=== PATIENT | female | born 1965 | race Caucasian/White ===

== ENCOUNTER → 2018-06-02 08:56 | Outpatient (CLI) | payer OTHER, SELFPAY ==
--- NOTE | 2018-06-02 09:02 | DI.RAD.S_ITS ---
PROCEDURE: XR CERVICAL SPINE 2V OR 3V INDICATIONS: neck pain TECHNIQUE: 3 view(s) of the cervical spine were acquired. COMPARISON: None. FINDINGS: Bones: No fractures or dislocations to the T1 level. The lateral masses of C1 appear intact on the odontoid view. No suspicious bony lesions. Degenerative changes are seen throughout, with moderate disc space narrowing at the C4-C5 and C5-C6 levels, with mild to moderate disc space narrowing at C6-C7. There is straightening of the normal cervical lordosis. Soft tissues: No prevertebral soft tissue swelling. The visualized lung apices are unremarkable. IMPRESSION: Lower cervical spine degenerative changes are seen, which are most prominent at the C5-C6 level. Straightening of the normal cervical lordosis is seen, which is commonly observed in patients with muscular spasm. Dictated by: Ghanshyam Mendez M.D. on 06/03/2018 at 9:07 Approved by: Ghanshyam Mendez M.D. on 06/03/2018 at 9:09
[2018-06-02 11:18] LABS: Creatine Kinase 86 U/L (30-135)
== END ==
PROVIDERS: Visit Provider Physician Assistant
DX: R29.898 Other symptoms and signs involving the musculoskeletal system (principal)
CPT/HCPCS: 36415; 72040; 82550

== ENCOUNTER → 2018-08-06 08:47 | Outpatient (CLI) | payer OTHER, SELFPAY ==
--- NOTE | 2018-08-06 08:48 | DI.MRI.S_ITS ---
PROCEDURE: MR SHOULDER RT WO CON INDICATIONS: right arm pain TECHNIQUE: Noncontrast oblique coronal T2 fast spin echo with fat saturation, oblique sagittal T1 spin echo and T2 fast spin echo with fat saturation, axial T1 spin echo and T2 fast spin echo with fat saturation through the shoulder. COMPARISON: None. FINDINGS: Image quality: Excellent. Rotator cuff: Tendinosis and low-grade articular and bursal surface partial-thickness tear involving distal supraspinatus near its insertion on the humeral head is seen extending to musculotendinous junction. Infraspinatus tendon is intact. Tendinosis and low-grade intrasubstance partial-thickness tear involving distal subscapularis is seen. No full-thickness rotator cuff tendon rupture. Sagittal images demonstrate mild supraspinatus muscle atrophy. Bones and bursae: No bone marrow contusions or fractures. Mild to moderate acromioclavicular joint osteophyte is seen. Mild to moderate glenohumeral joint osteoarthritis is also noted. Intraosseous cysts in posterior inferior glenoid is noted. The acromion demonstrates conventional anatomy, without an os acromiale. No pathologic subacromial-subdeltoid or subcoracoid bursal fluid is present. Capsule and soft tissues: In the absence of intra-articular contrast, there is signal abnormality and contour irregularity involving inferior posterior labrum at 6 to 8:00 position suggestive of posterior inferior labral tear. Signal abnormality is also seen within superior anterior labrum at one to 2:00 position. The glenohumeral ligaments appear intact. The long head of the biceps tendon demonstrates normal location and morphology. The rotator interval appears normal, without fibrosis. The coracohumeral ligament is normal in thickness. IMPRESSION: 1. Mild to moderate acromioclavicular joint and glenohumeral joint osteoarthritis. No fracture or dislocation. Trace amount of joint fluid. 2. Suggestion of superior anterior labral tear at one to 2:00 position and inferior posterior labral tear at 6 to 8:00 position. 3. Tendinosis and low-grade articular and bursal surface partial-thickness tear involving distal supraspinatus. Tendinosis and low-grade intrasubstance partial-thickness tear involving distal subscapularis. Mild supraspinatus muscle atrophy. Dictated by: Jerrod Phillips M.D. on 08/06/2018 at 10:08 Approved by: Jerrod Phillips M.D. on 08/06/2018 at 10:31
--- NOTE | 2018-08-06 08:48 | DI.MRI.S_ITS ---
PROCEDURE: MR THORACIC SPINE WO CON INDICATIONS: Right arm pain and weakness. TECHNIQUE: Noncontrast sagittal T1 spine echo and T2 fast spin echo, sagittal STIR, axial T1 and T2 fast spin echo through the thoracic spine. COMPARISON: None. FINDINGS: Image quality: Excellent. Alignment and Curvature: There is normal bony alignment. Bone Marrow: Marrow is of normal overall signal. No acute vertebral body compression fractures. Degenerative disc disease is mild along the thoracic spine until the T5-6 through T7-T8 levels are reached where mild to moderate posterior disc bulging is present but without significant spinal stenosis. Moderate degenerative disc disease is present at T11-T12 with a posterior disc bulge contiguous with the disc annulus, slightly greater on the right than the left and producing mild anterior spinal stenosis on the right. Spinal Cord: Visualized spinal cord is normal in size and signal. Paraspinous Soft Tissues: No paravertebral masses. Miscellaneous: On axial images, central canal and foramina appear widely patent at all scanned levels. IMPRESSION: Mild/moderate degenerative disc disease along the thoracic spine as discussed, most prominent at T11-T12 on the right upper disc herniation or evidence of prior trauma. A source of right arm pain and weakness is not identified by this study. Cervical MR may be warranted to accurately assess the cervical innervation to the upper extremities. Dictated by: Red Monzon M.D. on 08/06/2018 at 11:00 Approved by: Red Monzon M.D. on 08/06/2018 at 11:08
--- NOTE | 2018-08-06 08:48 | DI.MRI.S_ITS ---
PROCEDURE: MR CERVICAL SPINE WO CON INDICATIONS: right arm pain TECHNIQUE: Noncontrast sagittal T1 spin echo and T2 fast spin echo, sagittal STIR, foraminal oblique sagittal T2 fast spin echo, and axial gradient echo or T2 fast spin echo through the cervical spine. COMPARISON: None. FINDINGS: Image quality: Excellent. Alignment and Curvature: There is loss of normal cervical lordosis. Bone Marrow: Marrow demonstrates normal overall signal. There is mild reactive signal within the endplates adjacent to the C3-C4, C4-C5, C5-C6, and C6-C7 intervertebral discs. Spinal Cord: Visualized spinal cord has normal size and signal. No cerebellar tonsillar herniation. Paraspinous Soft Tissues: No paravertebral masses. Prevertebral soft tissues are normal in thickness. C2-C3: Bilateral facet hypertrophy. Mild left foraminal stenosis. No right foraminal stenosis. No canal stenosis. C3-C4: Congenital canal stenosis. Disc desiccation. Mild facet hypertrophy bilaterally. Mild canal stenosis. Mild bilateral foraminal stenosis. C4-C5: Congenital canal stenosis. Mild disc desiccation and diffuse disc bulge. Mild bilateral facet and uncovertebral hypertrophy. Mild canal stenosis. Mild right and moderate left foraminal stenosis. C5-C6: Congenital canal stenosis. Mild disc height loss and desiccation. Mild diffuse disc bulge. Bilateral facet and uncovertebral hypertrophy. Moderate canal stenosis. Moderate right and mild left foraminal stenosis. C6-C7: Congenital canal stenosis. Mild disc height loss and desiccation. Mild diffuse disc bulge. Mild bilateral facet and uncovertebral hypertrophy. Moderate canal stenosis. Mild bilateral foraminal stenosis. C7-T1: Disc desiccation. Bilateral facet and uncovertebral hypertrophy. No significant canal, nor foraminal stenosis. IMPRESSION: 1. Diffuse congenital canal stenosis, with superimposed disc and facet disease, as well as uncovertebral hypertrophy. 2. Multilevel canal stenoses, worst at C5-C6 and C6-C7, where there are moderate canal stenoses present. 3. Multilevel foraminal stenoses, worse at C4-C5 on the left, and at C5-C6 on the right, where there are moderate foraminal stenoses present. Dictated by: Josiane Loya M.D. on 08/06/2018 at 11:37 Approved by: Josiane Loya M.D. on 08/06/2018 at 11:50
== END ==
PROVIDERS: PCP Student in an Organized Health Care Education/Training Program; Visit Provider Student in an Organized Health Care Education/Training Program
DX: M79.601 Pain in right arm (principal); M19.011 Primary osteoarthritis, right shoulder; M50.221 Other cervical disc displacement at C4-C5 level; M48.02 Spinal stenosis, cervical region; M51.34 Other intervertebral disc degeneration, thoracic region; R29.898 Other symptoms and signs involving the musculoskeletal system
CPT/HCPCS: 72141; 72146; 73221

== ENCOUNTER 2019-03-07 00:24 | Emergency (ER) | payer OTHER, SELFPAY ==
[2019-03-07 00:33] VITALS: BP 148/100; PULSE 85; RESP 16; TEMP 37.2; O2SAT 95; BMI 42.5
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
[2019-03-07] MEDS: SODIUM CHLORIDE 0.9% 1,000 ML 1000 ML IV (00:54)
[2019-03-07 01:07] LABS: Add Manual Diff / Slide Review NO; Basophils Absolute Auto 100 /uL (0-100); Basophils Percent Auto 0.6 % (0-2); Eosinophils Absolute Auto 300 /uL (0-450); Eosinophils Percent Auto 2.9 % (2-4); Hemoglobin 16.4 g/dL (12.0-16.0); Lymphocytes Absolute Auto 3100 /uL (1100-4500); Lymphocytes Percent Auto 29.3 % (25-40); Mean Corpuscular HGB Conc 34.8 % (30-36); Mean Corpuscular Hemoglobin 31.6 PG (26-34); Mean Corpuscular Volume 90.8 fL (80-100); Monocytes Absolute Auto 800 /uL (0-900); Monocytes Percent Auto 7.5 % (3-14); Neutrophils Absolute Auto 6300 /uL (1500-7000); Neutrophils Percent Auto 59.7 % (50-75); Platelet Count 205 X10^3/uL (150-400); Red Blood Cell Count 5.18 X10^6/uL (4.0-5.2); Red Cell Distribution Width 13.4 % (11.6-14.8); White Blood Cell Count 10.6 X10^3/uL (4.5-11.0)
[2019-03-07 01:14] LABS: Alanine Aminotransferase 57 IU/L (9-52); Albumin 4.8 g/dL (3.5-5.0); Albumin Globulin Ratio 1.6 (1.0-2.8); Alkaline Phosphatase 82 U/L (38-126); Aspartate Aminotransferase 32 IU/L (14-36); Bilirubin Total 0.4 mg/dL (0.2-1.3); Blood Urea Nitrogen 17 mg/dL (7-17); Calcium 10.9 mg/dL (8.4-10.2); Carbon Dioxide 26 mmol/L (22-32); Chloride 108 mmol/L (98-107); Estimated Glomerular Filt Rate > 60.0 mL/min (>60); Glucose 103 mg/dL (70-100); HEMOLYSIS 47 (0-50); Lipase 150 U/L (23-300); Potassium 4.1 mmol/L (3.4-5.1); Sodium 144 mmol/L (137-145); Total Protein 7.8 g/dL (6.3-8.2)
[2019-03-07 02:42] VITALS: BP 117/57; PULSE 77; O2SAT 95
== END 2019-03-07 02:50 | disposition home or self-care (01) ==
PROVIDERS: Emergency Provider Emergency Medicine; PCP Student in an Organized Health Care Education/Training Program
DX: R10.9 Unspecified abdominal pain (principal); V03.00XA Pedestrian on foot injured in collision with car, pick-up truck or van in nontraffic accident, initial encounter; Y92.481 Parking lot as the place of occurrence of the external cause
CPT/HCPCS: 36591; 74177; 80053; 83690; 85025; 96360; 96361; 99283; 99284; Q9967

== ENCOUNTER → 2019-04-05 07:54 | Outpatient (CLI) | payer OTHER, SELFPAY ==
--- NOTE | 2019-04-05 07:56 | DI.US.S_ITS ---
PROCEDURE: US ABDOMEN LIMITED INDICATIONS: LIVER MASS ON CT TECHNIQUE: Real-time focused scanning was performed of the abdomen, with image documentation. COMPARISON: [facility], CT, CT ABDOMEN PELVIS W CON, 03/07/2019, 1:32. FINDINGS: Within the medial posterior liver, there is a mass seen that measures 2.6 x 1.8 x 2.5 cm. This mass is mildly echogenic compared to the surrounding normal liver. No abnormal vascularity can be seen. IMPRESSION: There is a mildly hyperechoic liver mass seen, corresponding to the CT abnormality. This is felt most likely to be related to a benign hemangioma. However, in a patient of this age, differential diagnosis includes a neoplastic mass. At clinical discretion, please consider a dedicated liver protocol MRI or CT for further evaluation. Dictated by: Ghanshyam Mendez M.D. on 04/05/2019 at 9:30 Approved by: Ghanshyam Mendez M.D. on 04/05/2019 at 9:33
== END ==
PROVIDERS: PCP Student in an Organized Health Care Education/Training Program; Visit Provider Student in an Organized Health Care Education/Training Program
DX: R16.0 Hepatomegaly, not elsewhere classified (principal)
CPT/HCPCS: 76705

== ENCOUNTER → 2019-04-13 14:43 | Outpatient (CLI) | payer OTHER, SELFPAY ==
[2019-04-13 18:56] LABS: Bilirubin Urine UA NEGATIVE (NEGATIVE); Color Urine UA YELLOW; Glucose Urine UA NEGATIVE (Negative); Ketones Urine UA TRACE (NEGATIVE); Leukocyte Esterase Urine UA 1+ (NEGATIVE); Nitrite Urine UA POSITIVE (Negative); Occult Blood Urine UA 3+ (Negative); Protein Urine UA 2+ (Negative); Specific Gravity Urine UA 1.025 (1.000-1.035); Urobilinogen Urine UA 0.2 E.U./dL (0.2); pH Urine UA 5.5 (4.5-8.0)
[2019-04-13 19:12] LABS: Appearance Urine UA SL CLOUDY
[2019-04-13 19:30] LABS: Bacteria Urine Moderate (10-30); Culture Indicated Urine Specimen Cultured; RBC Urine 30-100/HPF (0-5/HPF); Renal Epithelial Cells Urine 0-1/HPF (0-1/HPF); WBC Urine >100/HPF (0-5/HPF)
== END ==
PROVIDERS: PCP Student in an Organized Health Care Education/Training Program; Visit Provider Nurse Practitioner
DX: R10.9 Unspecified abdominal pain (principal); R31.9 Hematuria, unspecified
CPT/HCPCS: 81001; 87077; 87086; 87186

== ENCOUNTER → 2019-05-03 09:51 | Outpatient (CLI) | payer OTHER, SELFPAY ==
[2019-05-03 13:16] LABS: Appearance Urine UA CLOUDY; Bilirubin Urine UA NEGATIVE (NEGATIVE); Color Urine UA YELLOW; Glucose Urine UA NEGATIVE (Negative); Ketones Urine UA NEGATIVE (NEGATIVE); Leukocyte Esterase Urine UA 2+ (NEGATIVE); Nitrite Urine UA NEGATIVE (Negative); Occult Blood Urine UA 3+ (Negative); Protein Urine UA NEGATIVE (Negative); Urobilinogen Urine UA 0.2 E.U./dL (0.2)
[2019-05-03 13:25] LABS: Amorphous Sediment Urine 1+; Bacteria Urine Few (2-10); Mucus Urine 1+ (Negative); RBC Urine 10-30/HPF (0-5/HPF); Squamous Epithelial Cell Urine 0-1 /HPF (0-5/HPF); WBC Urine 30-100/HPF (0-5/HPF)
[2019-05-03 13:26] LABS: Culture Indicated Urine Specimen Cultured
== END ==
PROVIDERS: PCP Student in an Organized Health Care Education/Training Program; Visit Provider Nurse Practitioner
DX: R31.9 Hematuria, unspecified (principal); R82.998 Other abnormal findings in urine; Z87.440 Personal history of urinary (tract) infections
CPT/HCPCS: 81001; 87077; 87086; 87186

== ENCOUNTER 2019-06-14 09:45 | Outpatient (RCR) | payer OTHER, SELFPAY ==
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
--- NOTE | 2019-06-22 15:55 | PT.OPDS ---
Current Diagnoses Dorsalgia, unspecified (06/14/19) Visit Care Team Role Provider Type Aaron Harper MD Attending Provider Physician Primary Care Provider Specialty: Internal Medicine Address: [address] [place] [address], [facility] [address], [place], [facility] Email: [email or web address] Visit Number Visit Number 12 Discharge Summary PT-OP-C Subjective Start: 04/14/19 10:40 Freq: Status: Active Protocol: Document 06/22/19 15:53 HH (Rec: 06/22/19 15:55 HH [email or web address]) OP-PT Subjective Patient Comments Patient Comments Pt called in last Thursday and stated request to d/c from PT. PT-OP-T Assessment and Plan Start: 04/14/19 10:40 Freq: Status: Active Protocol: Document 06/22/19 15:53 HH (Rec: 06/22/19 15:54 HH [email or web address]) Physical Therapy Plan Discharge Physical Therapy Discharge Reasons Plateau in Progress Discharge Comments Pt called in last Thursday and stated request to d/c from PT. Pt reports she is pleased with her progress and able to return to workout activities.
== END 2019-07-06 16:43 | disposition home or self-care (01) ==
LOC: PHYS 09:45
PROVIDERS: PCP Student in an Organized Health Care Education/Training Program; Visit Provider Student in an Organized Health Care Education/Training Program
DX: M54.9 Dorsalgia, unspecified (principal)
CPT/HCPCS: 97014; 97110; 97140; 97162; 97163; 97535; G0283

== ENCOUNTER → 2019-07-19 09:39 | Outpatient (CLI) | payer OTHER, SELFPAY ==
--- NOTE | 2019-07-19 09:39 | DI.US.S_ITS ---
PROCEDURE: US ABDOMEN COMPLETE INDICATIONS: FOLLOW UP LIVER INCIDENTALOMA, EVAL LEFT LOWER QUADRANT PAIN TECHNIQUE: Real-time scanning was performed of the abdominal and retroperitoneal organs, with image documentation. COMPARISON: [facility], CT, CT ABDOMEN PELVIS W CON, 03/07/2019, 1:32. [facility], US, US ABDOMEN LIMITED, 04/05/2019, 8:06. FINDINGS: Liver: Liver is diffusely increased in echogenicity. Normal hepatic size. Probable hemangioma redemonstrated anterior to the portal vein appears unchanged measure 3.4 x 1.9 x 1.8 cm. Focal fatty sparing seen adjacent to the gallbladder. Gallbladder: No gallstones identified. Normal gallbladder wall. No pericholecystic fluid. Negative sonographic Mackenzie sign. Biliary ducts: Intrahepatic bile ducts are non-dilated. Extrahepatic bile duct caliber measures 10.0 mm. Normal is 6-7 mm or less in diameter, or 10 mm or less post-cholecystectomy. Pancreas: Visualized portions of the pancreas are sonographically normal. Spleen: Spleen is normal in size and homogeneous in echotexture. Kidneys: Kidneys are normal in size and echotexture. Right kidney measures 11.8 cm long; left kidney measures 13.9 cm long. No hydronephrosis or nephrolithiasis. No solid masses. Left renal peripelvic cyst measuring 15 mm. Aorta: Visualized aorta is normal in caliber at less than 3 cm. Iliacs: Proximal common iliac arteries are normal in caliber at less than 2.5 cm. IVC: Intrahepatic inferior vena cava is patent. Miscellaneous: No free abdominal fluid. IMPRESSION: 1. Increased hepatic echogenicity noted possibly related to hepatic steatosis but other sources of hepatocellular disease cannot be excluded. Recommend clinical correlation. 2. Presumed cavernous hemangioma which appears unchanged from prior examination. Continued sonographic surveillance recommended. 3. Mild sonographic splenomegaly. Dictated by: Levy AMBRIZ Interpreted: Rhoda Marcus MD on 07/19/2019 at 11:02 Approved by: Rhoda Marcus M.D. on 07/19/2019 at 14:08
== END ==
PROVIDERS: PCP Student in an Organized Health Care Education/Training Program; Visit Provider Student in an Organized Health Care Education/Training Program
DX: K76.9 Liver disease, unspecified (principal); R10.32 Left lower quadrant pain
CPT/HCPCS: 76700

== ENCOUNTER 2020-04-14 15:50 | Emergency (ER) | payer OTHER, SELFPAY ==
[2020-04-14 16:02] VITALS: BP 148/70; PULSE 96; RESP 15; TEMP 37.2; O2SAT 96; BMI 45.3
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
[2020-04-14 16:23] LABS: Bacteria Urine None Seen; RBC Urine None Seen (0-5/HPF)
[2020-04-14 16:40] LABS: Culture Indicated Urine Specimen Cultured; Mucus Urine 1+ (Negative); WBC Urine 5-10/HPF (0-5/HPF)
[2020-04-14] MEDS: KETOROLAC 60 MG/2 ML VIAL 30 MG IV (16:58)
[2020-04-14 17:01] LABS: Add Manual Diff / Slide Review NO; Basophils Absolute Auto 0 /uL (0-100); Basophils Percent Auto 0.4 % (0-2); Eosinophils Absolute Auto 100 /uL (0-450); Eosinophils Percent Auto 0.9 % (2-4); Hematocrit 43.8 % (36-46); Hemoglobin 15.1 g/dL (12.0-16.0); Lymphocytes Absolute Auto 2000 /uL (1100-4500); Lymphocytes Percent Auto 17.7 % (25-40); Mean Corpuscular HGB Conc 34.4 % (30-36); Mean Corpuscular Hemoglobin 31.4 PG (26-34); Mean Corpuscular Volume 91.2 fL (80-100); Monocytes Absolute Auto 800 /uL (0-900); Monocytes Percent Auto 7.2 % (3-14); Neutrophils Absolute Auto 8300 /uL (1500-7000); Neutrophils Percent Auto 73.8 % (50-75); Platelet Count 197 X10^3/uL (150-400); Red Cell Distribution Width 13.1 % (11.6-14.8); White Blood Cell Count 11.2 X10^3/uL (4.5-11.0)
[2020-04-14 17:11] LABS: Alanine Aminotransferase 50 IU/L (<35); Albumin 4.5 g/dL (3.5-5.0); Albumin Globulin Ratio 1.6 (1.0-2.8); Alkaline Phosphatase 85 U/L (38-126); Aspartate Aminotransferase 30 IU/L (14-36); BUN Creatinine Ratio 25.8 (6-22); Bilirubin Total 0.6 mg/dL (0.2-1.3); Blood Urea Nitrogen 16 mg/dL (7-17); Carbon Dioxide 25 mmol/L (22-32); Chloride 106 mmol/L (98-107); Estimated Glomerular Filt Rate > 60.0 mL/min (>60); Globulin 2.8 g/dL (1.7-4.1); Glucose 105 mg/dL (70-100); HEMOLYSIS < 15 (0-50); Lipase 68 U/L (23-300); Potassium 3.8 mmol/L (3.4-5.1); Sodium 139 mmol/L (137-145); Total Protein 7.3 g/dL (6.3-8.2)
[2020-04-14 18:23] VITALS: BP 109/53; PULSE 72; RESP 14; O2SAT 99
== END 2020-04-14 18:25 | disposition home or self-care (01) ==
PROVIDERS: Emergency Provider Emergency Medicine; PCP Student in an Organized Health Care Education/Training Program
DX: R10.9 Unspecified abdominal pain (principal); E66.01 Morbid (severe) obesity due to excess calories
CPT/HCPCS: 36415; 80053; 81003; 81015; 83690; 85025; 87086; 96374; 99284; J1885

== ENCOUNTER → 2020-10-17 14:13 | Outpatient (CLI) | payer OTHER, SELFPAY ==
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
== END ==
PROVIDERS: PCP Student in an Organized Health Care Education/Training Program; Referring Provider Student in an Organized Health Care Education/Training Program; Visit Provider Student in an Organized Health Care Education/Training Program
DX: M25.562 Pain in left knee (principal); R20.2 Paresthesia of skin; M17.12 Unilateral primary osteoarthritis, left knee; S83.242A Other tear of medial meniscus, current injury, left knee, initial encounter; S83.282A Other tear of lateral meniscus, current injury, left knee, initial encounter; S83.512A Sprain of anterior cruciate ligament of left knee, initial encounter; M25.462 Effusion, left knee; M71.22 Synovial cyst of popliteal space [Baker], left knee
CPT/HCPCS: 73721

== ENCOUNTER → 2021-03-20 13:06 | Outpatient (CLI) | payer OTHER, SELFPAY ==
[2021-03-20 14:02] LABS: COVID19 -Nasal RAPID Negative (Negative)
== END ==
PROVIDERS: PCP Student in an Organized Health Care Education/Training Program; Visit Provider Physician Assistant
DX: R05 Cough (principal); J02.9 Acute pharyngitis, unspecified
CPT/HCPCS: 87070; 87635

== ENCOUNTER 2021-03-23 20:11 | Emergency (ER) | payer OTHER, SELFPAY ==
[2021-03-23 20:28] VITALS: BP 175/78; PULSE 90; RESP 16; TEMP 35.9; O2SAT 98
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
[2021-03-23 22:04] VITALS: PULSE 95; O2SAT 95
[2021-03-23 22:05] VITALS: BP 164/67; PULSE 93; O2SAT 94
[2021-03-23 22:30] VITALS: PULSE 86; O2SAT 95
[2021-03-23] MEDS: OXYCODONE/ACETAMINOPHEN 5/325 TABLET 1 TAB PO (22:50)
[2021-03-23] MEDS: IBUPROFEN 400 MG TABLET PO (22:50)
[2021-03-23 23:00] VITALS: PULSE 82; O2SAT 96
[2021-03-23 23:30] VITALS: PULSE 79; O2SAT 92
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
[2021-03-24] VITALS: PULSE 75; O2SAT 92
[2021-03-24] MEDS: RABIES VACCINE (RABAVERT) 2.5 UNITS SYRINGE IM (00:45)
[2021-03-24] MEDS: HYDROMORPHONE 0.5 MG INJ IV (00:45)
[2021-03-24] MEDS: KETOROLAC 30 MG/ML VIAL 15 MG IV (00:45)
[2021-03-24] MEDS: RABIES IMMUNE GLOBULIN 300 UNIT/ML 1mL VIAL 2100 UNIT IM (01:30)
[2021-03-24] MEDS: BACITRACIN OINT 0.9 GM PCKT 1 APPLIC TOP (01:45)
[2021-03-24] MEDS: OXYCODONE/APAP 5/325 PREPACK 1 BOTTLE MISC (02:33)
[2021-03-24 02:36] VITALS: PULSE 72; RESP 20; O2SAT 95
== END 2021-03-24 02:38 | disposition home or self-care (01) ==
PROVIDERS: Emergency Provider Emergency Medicine; PCP Student in an Organized Health Care Education/Training Program
DX: S46.911A Strain of unspecified muscle, fascia and tendon at shoulder and upper arm level, right arm, initial encounter (principal); S91.352A Open bite, left foot, initial encounter; W55.41XA Bitten by pig, initial encounter; Z20.3 Contact with and (suspected) exposure to rabies; Z23 Encounter for immunization
CPT/HCPCS: 36415; 73030; 73080; 73110; 73630; 81003; 90375; 90471; 90675; 96372; 96374; 96375; 99284; 99285; J1170; J1885

== ENCOUNTER 2021-03-27 09:24 | Emergency (ER) | payer OTHER, SELFPAY ==
[2021-03-27 09:39] VITALS: BP 144/83; PULSE 79; RESP 18; TEMP 36.6; O2SAT 95
[2021-03-27] MEDS: RABIES VACCINE (RABAVERT) 2.5 UNITS SYRINGE IM (09:55)
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
[2021-03-27 10:43] VITALS: BP 139/65; PULSE 71; RESP 19; O2SAT 94
== END 2021-03-27 10:44 | disposition home or self-care (01) ==
PROVIDERS: Emergency Provider Emergency Medicine; PCP Student in an Organized Health Care Education/Training Program
DX: F43.10 Post-traumatic stress disorder, unspecified (principal); W55.41XA Bitten by pig, initial encounter; Z23 Encounter for immunization; Z20.3 Contact with and (suspected) exposure to rabies
CPT/HCPCS: 90471; 90675; 99283

== ENCOUNTER 2021-03-31 14:27 | Emergency (ER) | payer OTHER, SELFPAY ==
[2021-03-31 14:34] VITALS: BP 141/67; PULSE 83; RESP 18; TEMP 36.4; O2SAT 95
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
[2021-03-31] MEDS: RABIES VACCINE (RABAVERT) 2.5 UNITS SYRINGE IM (15:13)
== END 2021-03-31 15:23 | disposition home or self-care (01) ==
PROVIDERS: Emergency Provider Emergency Medicine; PCP Student in an Organized Health Care Education/Training Program
DX: Z23 Encounter for immunization (principal); W55.41XA Bitten by pig, initial encounter
CPT/HCPCS: 90471; 90675; 99283

== ENCOUNTER 2021-04-07 14:38 | Emergency (ER) | payer OTHER, SELFPAY ==
[2021-04-07 14:44] VITALS: BP 148/77; PULSE 88; RESP 16; TEMP 36.5; O2SAT 96; BMI 45.1
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
[2021-04-07] MEDS: RABIES VACCINE (RABAVERT) 2.5 UNITS SYRINGE IM (15:13)
--- NOTE | 2021-04-07 15:30 | PC.NURSE ---
copied completed vaccine record put in patients chart. patient given the original document. provider aware.
== END 2021-04-07 15:30 | disposition home or self-care (01) ==
PROVIDERS: Emergency Provider Emergency Medicine; PCP Student in an Organized Health Care Education/Training Program
DX: Z23 Encounter for immunization (principal); S91.352A Open bite, left foot, initial encounter; W55.41XA Bitten by pig, initial encounter; Z20.3 Contact with and (suspected) exposure to rabies
CPT/HCPCS: 90471; 90675; 99283

== ENCOUNTER → 2021-05-20 17:44 | Outpatient (CLI) | payer OTHER, SELFPAY ==
--- NOTE | 2021-05-20 17:44 | DI.MRI.S_ITS ---
PROCEDURE: MR SHOULDER RT WO CON INDICATIONS: Contusion of right shoulder, initial encounter TECHNIQUE: Noncontrast oblique coronal T2 fast spin echo with fat saturation, oblique sagittal T1 spin echo and T2 fast spin echo with fat saturation, axial T1 spin echo and T2 fast spin echo with fat saturation through the shoulder. COMPARISON: [facility], MR, MR SHOULDER RT WO CON, 08/06/2018, 9:39. FINDINGS: Rotator cuff: Supraspinatus tendinopathy with low-grade bursal surface fraying, and low-grade partial-thickness articular sided tear at the junction of the critical zone and footprint image 12/7. Infraspinatus mild tendinopathy. The teres minor appears intact. Subscapularis appears grossly intact. Questionable/borderline atrophy of the supraspinatus. There is fatty infiltration of the teres minor and infraspinatus muscles. Bones and bursae: No acute bone marrow contusions or fractures. There is questionable small Hill-Sachs fracture deformity which appears chronic. Moderate to severe glenohumeral and moderate acromioclavicular joint degeneration. Acromion demonstrates conventional anatomy, without an os acromiale. Moderate subacromial-subdeltoid bursitis. Capsule and soft tissues: Labrum: Circumferential blunted appearance of the labrum. There is diffuse glenoid rim spurring. No definite posterior subluxation of the humeral head relative to the glenoid accounting for internal rotation of the humerus at the time of the exam. Glenohumeral ligaments: Inferior and superior glenohumeral ligaments are intact. Biceps tendon: Long head of the biceps tendon intact. Rotator interval: Partial obliteration of the subcoracoid fat signal intensity. Coracohumeral ligament: Intact. IMPRESSION: Low-grade partial-thickness rotator cuff tear as above. Moderate subacromial-subdeltoid bursitis Circumferential chronic degenerative tear of the labrum. Moderate to severe glenohumeral osteoarthritis with diffuse partial-thickness chondral loss. Additional chronic and incidental findings as above. Dictated by: Cruzito Raines M.D. on 05/21/2021 at 10:38 Approved by: Cruzito Raines M.D. on 05/21/2021 at 10:49
== END ==
PROVIDERS: PCP Student in an Organized Health Care Education/Training Program; Referring Provider Orthopaedic Surgery; Visit Provider Orthopaedic Surgery
DX: S40.011A Contusion of right shoulder, initial encounter (principal); M75.111 Incomplete rotator cuff tear or rupture of right shoulder, not specified as traumatic; M25.511 Pain in right shoulder; M75.51 Bursitis of right shoulder; M19.011 Primary osteoarthritis, right shoulder; S43.491A Other sprain of right shoulder joint, initial encounter
CPT/HCPCS: 73221

== ENCOUNTER → 2021-12-02 13:28 | Outpatient (CLI) | payer OTHER, SELFPAY ==
[2021-12-02 14:51] LABS: COVID19 -Nasal RAPID Negative (Negative)
== END ==
PROVIDERS: PCP Student in an Organized Health Care Education/Training Program; Visit Provider Family Medicine Sleep Medicine
DX: Z20.822 Contact with and (suspected) exposure to COVID-19 (principal)
CPT/HCPCS: 87635; C9803

== ENCOUNTER 2021-12-04 10:21 | Day surgery (SDC) | payer OTHER, SELFPAY ==
[2021-12-03 10:25] VITALS: BMI 47.6
[2021-12-04] VITALS (7 sets, daily range): BP systolic 115–140; BP diastolic 49–69; PULSE 71–87; RESP 14–20; TEMP 36.4–37; O2SAT 94–98; BMI 47.6
[2021-12-04] MEDS: LACTATED RINGERS 1,000 ML 42 ML IV (12:08)
[2021-12-04] MEDS: ACETAMINOPHEN 325 MG TABLET 975 MG PO (12:12)
[2021-12-04] MEDS: CELECOXIB 200 MG CAPSULE PO (12:12)
--- NOTE | 2021-12-04 12:35 | PM.PREOP ---
Pre-operative Note COVID-19 COVID-19 status: Negative Result date/Date tested (Pos, Neg/Pending): 12/02/21 Interval Note History & Physical reviewed/Exam performed by Physician: Yes Changes to H&P: No
--- NOTE | 2021-12-04 13:19 | SUR.PREOP ---
Interscalene block performed by Dr Encinas. Time out 1315. Block start 1320. Block end 1327. Pt tolerated well, no adverse events.
[2021-12-04] MEDS: CEFAZOLIN 2 GM/20 ML SYRINGE IV (13:56)
[2021-12-04] MEDS: SODIUM CHLORIDE IRRIG SOLUTION 3,000 ML, EPINEPHrine 1 MG IRR (14:20)
--- NOTE | 2021-12-04 14:23 | SUR.OPER ---
Lateral on padded OR bed with piedra bag positioner, head on pillow, gel axillary roll in place, bottom leg bent with gel pad under knee to foot, upper leg straight and supported with pillows. Operative arm secured in shoulder positioning suspension device. non-operative arm secured on padded arm board. Safety belt at hip, tape over blanket securing lower legs.
--- NOTE | 2021-12-04 15:08 | PM.OP.1 ---
Operative Date/Time/Diagnoses Date of procedure: 12/04/21 Time of procedure: 15:09 Pre-op diagnosis: Right shoulder partial-thickness rotator cuff tear and acromioclavicular osteoarthritis Post-op diagnosis: same (Also glenohumeral osteoarthritis and glenohumeral loose body) Procedure & Clinicians Procedure: 1. Arthroscopic distal clavicle excision 2. Arthroscopic major debridement of labrum, partial thickness rotator cuff tear, coracoacromial ligament, and type 2 acromion 3. Arthroscopic loose body excision Same procedure as scheduled: Yes (With the addition of loose body excision) Indications: The patient is a 56-year-old woman who has had chronic right shoulder pain that has not responded to non operative measures. An MRI has shown what appears to be a partial-thickness rotator cuff tear and acromioclavicular osteoarthritis which is consistent with her physical examination. She has agreed to surgery after discussion the risks benefits and alternatives. Risks discussed included but were not limited to: Failure to improve, stiffness, infection, nerve damage, deep venous thrombosis, pulmonary embolism, stroke, myocardial infarction, permanent paralysis and . Surgeon: Gerardo Courtney Click Yes if Unassisted: Yes Anesthesia Type: General and Peripheral nerve block Operative Notes Findings: 1. Significant thinning of the glenohumeral cartilage with bone visible through a minimal remaining amount of cartilage on the humeral head and grade 4 exposure of bone on the inferior and anterior glenoid. Osteophytes were present circumferentially around the humeral head including just onto the rotator cuff. 2. Widespread degenerative fraying of the glenoid labrum 3. Intact but inflamed glenohumeral ligaments 4. Intact subscapularis 5. No significant fraying of the biceps tendon, normal biceps insertion 6. Low-grade articular surface partial thickness tear of the supraspinatus approximately 2 mm deep and about 1 cm anterior to posterior. 7. Intact infraspinatus 8. Axillary pouch notable for a 4 x 4 x 6 cm loose body and osteophyte formation. 9. Intact rotator cuff from the bursal surface with minimal fraying 10. Type 2 acromion with impingement lesion 11. Significant degenerative change of the acromioclavicular joint 12. No significant loss of motion or pathologic laxity on exam under anesthesia. Closure Type: primary Specimen(s): none sent Estimated Blood Loss (mL): 10 Blood products transfused: none Procedure in detail: Patient was seen in the preoperative area where she identified her right shoulder as the operative site and this was marked with my initials. She underwent the induction of an interscalene block and was transported to the operating room and placed on the operating room table in a supine position where she underwent a general anesthetic. Her arm was examined under anesthesia with the findings given above. She was then repositioned in the left lateral decubitus position with an axillary roll and padding for all pressure points. She was stabilized in this position using the beanbag and adhesive tape. Her arm was prepared for the fingertips to the base the neck with ChloraPrep in the usual fashion and draped through sterile drapes. The arm was placed in 10 lb of balanced skin suspension and the subcutaneous landmarks were outlined on the skin with a marking pen. Portal sites were selected. The posterior portal was created for the arthroscope. Diagnostic arthroscopy ensued with result given above. An anterior portal was then created and a shaver inserted in used to excise the loose body and to debride the labral tear and the undersurface of the rotator cuff as well as loose flaps of cartilage. The arthroscope was then withdrawn from the glenohumeral joint and placed in the subacromial bursa through the posterior portal. A lateral portal was created for instrumentation. A shaver and electrocautery were used to perform a bursectomy and to expose the undersurface of the acromion. This was then planed using the cutting block technique to convert the type 2 acromion to type 1 acromion due to the impingement lesion. The coracoacromial ligament was released as part of this procedure. The distal 8-10 mm of the clavicle was then removed due to the osteoarthritis there. At this point all arthroscopic equipment was removed, the wounds were closed with 4-0 Monocryl and Steri-Strips. Dressings of sterile 4x4s, an ABD and adhesive dressing were applied followed by a sling. The patient was extubated in the operating room and transported to the recovery room in good condition having tolerated the procedure well. Complications: none Post-operative Condition: stable Disposition: PACU Plan for aftercare: She will be discharged today. She will be maintained on a standard subacromial decompression protocol. She will be allowed to use the arm to tolerance. She likely eventually will require total shoulder replacement but she will be encouraged to put this off for a long as possible given her relatively young age.
== END 2021-12-04 15:52 | disposition home or self-care (01) ==
PROVIDERS: PCP Student in an Organized Health Care Education/Training Program; Referring Provider Orthopaedic Surgery; Visit Provider Orthopaedic Surgery
PROC: (CPT 29827; principal; 2021-12-04 12:30)
DX: M75.111 Incomplete rotator cuff tear or rupture of right shoulder, not specified as traumatic (principal); M19.011 Primary osteoarthritis, right shoulder; M24.011 Loose body in right shoulder; M75.41 Impingement syndrome of right shoulder
CPT/HCPCS: 29823; 29824; 29826; 64415; J0171; J0690; J1100; J2250; J2405; J2704; J3010

== ENCOUNTER → 2022-05-27 14:06 | Outpatient (CLI) | payer OTHER, SELFPAY ==
[2022-05-27 15:10] LABS: BUN Creatinine Ratio 32.7 (6-22); Blood Urea Nitrogen 18 mg/dL (7-17); Calcium 10.5 mg/dL (8.4-10.2); Carbon Dioxide 24 mmol/L (22-32); Chloride 102 mmol/L (98-107); Cholesterol 187 mg/dL (140-199); Estimated Glomerular Filt Rate > 60 mL/min (>60); Glucose 97 mg/dL (70-100); HDL Cholesterol 34 mg/dL (40-60); HEMOLYSIS < 15 (0-50); LDL Cholesterol Calculated 111 mg/dL (<100); Potassium 3.9 mmol/L (3.4-5.1); Sodium 141 mmol/L (137-145); Triglycerides 208 mg/dL (35-150)
[2022-05-27 17:54] LABS: TSH w/ Reflex to FT4 8.46 uIU/mL (0.47-4.68)
[2022-05-27 23:00] LABS: Free T4, Direct Thyroxine 1.66 ng/dL (0.78-2.19)
== END ==
PROVIDERS: PCP Student in an Organized Health Care Education/Training Program; Referring Provider Student in an Organized Health Care Education/Training Program; Visit Provider Student in an Organized Health Care Education/Training Program
DX: I10 Essential (primary) hypertension (principal); E78.5 Hyperlipidemia, unspecified; E03.9 Hypothyroidism, unspecified
CPT/HCPCS: 36415; 80048; 80061; 84439; 84443

== ENCOUNTER → 2022-07-01 15:42 | Outpatient (CLI) | payer OTHER, SELFPAY ==
--- NOTE | 2022-07-01 15:43 | DI.MG.S_ITS ---
BILATERAL DIGITAL SCREENING MAMMOGRAM 3D/2D WITH CAD: 07/01/2022 CLINICAL: Routine screening. Baseline exam. No prior exams were available for comparison. There are scattered areas of fibroglandular density in both breasts (category b / 25%-50% glandular tissue). Current study was also evaluated with a Computer Aided Detection (CAD) system. No significant masses, calcifications, or other findings are seen in either breast. IMPRESSION: NEGATIVE There is no mammographic evidence of malignancy. A 1 year screening mammogram is recommended. Based on the Tyrer Cuzick model (a risk assessment model) the patient's lifetime risk is 6.5% and her 10 year risk is 2.2%. According to the ACR, ACS, and NCCN guidelines, an annual breast MRI exam along with mammogram is recommended if the patient's lifetime risk is 20% or greater. This exam was interpreted at Station ID: [id number]. NOTE: For mammograms, a report in lay terms will be sent to the patient. Approximately 15% of breast malignancies will not be visualized mammographically. In the management of a palpable breast mass, a negative mammogram must not discourage biopsy of a clinically suspicious lesion. Electronically Signed By: Dana montalvo/deon:07/02/2022 12:24:56 letter sent: Normal Exam ACR BI-RADS Category 1: Negative [id number]
== END ==
PROVIDERS: PCP Student in an Organized Health Care Education/Training Program; Referring Provider Student in an Organized Health Care Education/Training Program; Visit Provider Student in an Organized Health Care Education/Training Program
DX: Z12.31 Encounter for screening mammogram for malignant neoplasm of breast (principal)
CPT/HCPCS: 77063; 77067

== ENCOUNTER → 2023-05-14 07:53 | Outpatient (CLI) | payer OTHER, SELFPAY ==
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
== END ==
PROVIDERS: PCP Student in an Organized Health Care Education/Training Program; Referring Provider Student in an Organized Health Care Education/Training Program; Visit Provider Student in an Organized Health Care Education/Training Program
DX: R07.81 Pleurodynia (principal); R07.89 Other chest pain
CPT/HCPCS: 71101

== ENCOUNTER → 2023-06-11 12:50 | Outpatient (CLI) | payer OTHER, SELFPAY ==
[2023-06-11 14:25] LABS: Add Manual Diff / Slide Review NO; Basophils Absolute Auto 0 /uL (0-100); Basophils Percent Auto 0.4 % (0-2); Eosinophils Absolute Auto 200 /uL (0-450); Eosinophils Percent Auto 1.9 % (2-4); Hematocrit 44.3 % (36-46); Hemoglobin 15.7 g/dL (12.0-16.0); Lymphocytes Absolute Auto 2500 /uL (1100-4500); Lymphocytes Percent Auto 30.6 % (25-40); Mean Corpuscular HGB Conc 35.3 % (30-36); Mean Corpuscular Hemoglobin 32.4 PG (26-34); Mean Corpuscular Volume 91.7 fL (80-100); Monocytes Absolute Auto 500 /uL (0-900); Monocytes Percent Auto 6.1 % (3-14); Neutrophils Absolute Auto 5000 /uL (1500-7000); Platelet Count 195 X10^3/uL (150-400); Red Blood Cell Count 4.83 X10^6/uL (4.0-5.2); Red Cell Distribution Width 12.8 % (11.6-14.8); White Blood Cell Count 8.2 X10^3/uL (4.5-11.0)
[2023-06-11 14:47] LABS: Alanine Aminotransferase 32 IU/L (<35); Albumin 4.8 g/dL (3.5-5.0); Albumin Globulin Ratio 1.6 (1.0-2.8); Alkaline Phosphatase 62 U/L (38-126); Aspartate Aminotransferase 24 IU/L (14-36); BUN Creatinine Ratio 36.4 (6-22); Bilirubin Total 0.5 mg/dL (0.2-1.3); Blood Urea Nitrogen 24 mg/dL (7-17); Calcium 11.2 mg/dL (8.4-10.2); Carbon Dioxide 25 mmol/L (22-32); Chloride 105 mmol/L (98-107); Cholesterol 170 mg/dL (140-199); Estimated Glomerular Filt Rate > 60 mL/min (>60); HDL Cholesterol 52 mg/dL (40-60); HEMOLYSIS < 15 (0-50); LDL Cholesterol Calculated 89 mg/dL (<100); Potassium 3.9 mmol/L (3.4-5.1); Sodium 141 mmol/L (137-145); Total Protein 7.8 g/dL (6.3-8.2); Triglycerides 143 mg/dL (35-150)
[2023-06-11 15:18] LABS: TSH w/ Reflex to FT4 5.49 uIU/mL (0.47-4.68)
[2023-06-11 15:23] LABS: Ferritin 97 ng/mL (11-264)
[2023-06-11 15:53] LABS: Glucose 95 mg/dL (70-100)
[2023-06-11 16:09] LABS: Free T4, Direct Thyroxine 1.31 ng/dL (0.78-2.19)
[2023-06-11 18:37] LABS: Creatinine Urine Random 119.9 mg/dL
[2023-06-11 18:42] LABS: Microalbumin Urine Random 1.8 mg/dL (0-1.6)
== END ==
PROVIDERS: PCP Nurse Practitioner; Referring Provider Family Medicine; Visit Provider Family Medicine
DX: E66.01 Morbid (severe) obesity due to excess calories (principal); G25.81 Restless legs syndrome; K76.9 Liver disease, unspecified; E78.2 Mixed hyperlipidemia; E03.9 Hypothyroidism, unspecified; I10 Essential (primary) hypertension
CPT/HCPCS: 36415; 80053; 80061; 82043; 82570; 82728; 84439; 84443; 85025

== ENCOUNTER → 2023-06-23 08:21 | Outpatient (CLI) | payer OTHER, SELFPAY ==
[2023-06-23 11:38] LABS: BUN Creatinine Ratio 37.3 (6-22); Blood Urea Nitrogen 25 mg/dL (7-17); Calcium 11.5 mg/dL (8.4-10.2); Carbon Dioxide 27 mmol/L (22-32); Chloride 103 mmol/L (98-107); Estimated Glomerular Filt Rate > 60 mL/min (>60); Glucose 100 mg/dL (70-100); HEMOLYSIS < 15 (0-50); Potassium 3.8 mmol/L (3.4-5.1); Sodium 140 mmol/L (137-145)
[2023-06-23 12:11] LABS: TSH w/ Reflex to FT4 3.12 uIU/mL (0.47-4.68)
[2023-06-24 13:08] LABS: Ionized Calcium 5.7 mg/dL (4.5-5.6)
[2023-06-25 17:21] LABS: Calcium 11.2 mg/dL (8.7-10.2); Parathyroid Hormone, Intact 39 pg/mL (15-65)
== END ==
PROVIDERS: PCP Nurse Practitioner; Referring Provider Family Medicine; Visit Provider Family Medicine
DX: E03.9 Hypothyroidism, unspecified (principal); E83.52 Hypercalcemia; R79.89 Other specified abnormal findings of blood chemistry; E86.0 Dehydration
CPT/HCPCS: 36415; 80048; 82310; 82330; 83970; 84443

== ENCOUNTER → 2023-07-22 09:57 | Outpatient (CLI) | payer OTHER, SELFPAY ==
--- NOTE | 2023-07-22 09:59 | DI.RAD.S_ITS ---
PROCEDURE: XR CHEST 2V INDICATIONS: cough, recent covid infection with persistent symptoms TECHNIQUE: 2 views of the chest were acquired. COMPARISON: None. FINDINGS: Surgical changes and devices: None. Lungs and pleura: Left lower lung patchy consolidation. No pleural effusions or pneumothorax. Mediastinum: Mediastinal contours are normal. Heart size is normal. Bones and chest wall: No suspicious bony abnormalities. Soft tissues appear unremarkable. IMPRESSION: Left lower lung patchy consolidation were may represent atelectasis, aspiration or infection. Dictated by: Dominga Puentes M.D. on 07/22/2023 at 22:00 Approved by: Dominga Puentes M.D. on 07/22/2023 at 22:03
[2023-07-22 10:32] LABS: Appearance Urine UA CLEAR; Bilirubin Urine UA NEGATIVE (NEGATIVE); Color Urine UA YELLOW; Glucose Urine UA NEGATIVE (Negative); Ketones Urine UA TRACE (NEGATIVE); Leukocyte Esterase Urine UA NEGATIVE (NEGATIVE); Nitrite Urine UA NEGATIVE (Negative); Occult Blood Urine UA NEGATIVE (Negative); Protein Urine UA NEGATIVE (Negative); Specific Gravity Urine UA 1.025 (1.000-1.035)
== END ==
PROVIDERS: PCP Nurse Practitioner; Referring Provider Nurse Practitioner; Visit Provider Nurse Practitioner
DX: U07.1 COVID-19 (principal); R05.9 Cough, unspecified; R50.9 Fever, unspecified; R30.0 Dysuria
CPT/HCPCS: 71046; 81003

== ENCOUNTER 2023-08-24 18:16 | Emergency (ER) | payer OTHER, SELFPAY ==
[2023-08-24] VITALS (8 sets, daily range): BP systolic 136–147; BP diastolic 60–72; PULSE 66–80; RESP 14–23; TEMP 36.5–36.6; O2SAT 93–97; BMI 34.0
--- NOTE | 2023-08-24 18:24 | DI.RAD.S_ITS ---
PROCEDURE: XR HIP W PEL IF DONE LT 2V INDICATIONS: fall TECHNIQUE: 2 views of the hip were acquired. COMPARISON: None. FINDINGS: Bones: No fractures or dislocations. No suspicious bony lesions. The visualized pelvic ring appears intact. Moderate degenerative changes of the pubis symphysis. Mild bilateral hip joint degeneration. Soft tissues: No suspicious soft tissue calcifications or masses. IMPRESSION: No acute bony abnormality. Dictated by: Dominga Puentes M.D. on 08/24/2023 at 19:05 Approved by: Dominga Puentes M.D. on 08/24/2023 at 19:07
--- NOTE | 2023-08-24 18:24 | DI.RAD.S_ITS ---
PROCEDURE: XR RIBS LT 2V INDICATIONS: fall TECHNIQUE: 2 views of the left ribs were acquired. COMPARISON: None. FINDINGS: Surgical changes and devices: None. Bones and chest wall: No fractures or dislocations. No suspicious bony lesions. Overlying soft tissues appear unremarkable. Lungs and pleura: The visualized lung appears clear. No pleural effusions or pneumothorax are visible. IMPRESSION: No acute displaced rib fracture. Dictated by: Dominga Puentes M.D. on 08/24/2023 at 19:07 Approved by: Dominga Puentes M.D. on 08/24/2023 at 19:08
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
--- NOTE | 2023-08-24 19:00 | DI.CT.S_ITS ---
PROCEDURE: CT CHEST ABD PEL W CON INDICATIONS: trauma, fall down stairs TECHNIQUE: After the administration of intravenous contrast, 5 mm thick sections acquired from the lung apices to the symphysis. 2.5 mm thick coronal and sagittal reformats were acquired. Additional 7 mm thick coronal maximum intensity projection (MIP) reformats acquired through the lungs. Optional 10-minute delayed imaging may be performed from the kidneys to the bladder. For radiation dose reduction, the following was used: automated exposure control, adjustment of mA and/or kV according to patient size. COMPARISON: None. FINDINGS: Image quality: Excellent. CHEST: Lungs: No pulmonary contusions or lacerations. No acute airspace opacities. No pneumothorax or hemothorax. Central and peripheral airways appear patent and normal in caliber. Multiple scattered sub 6 mm solid pulmonary nodules. Mediastinum: No mediastinal hematomas. Heart size is normal. No pericardial effusion. Thoracic aorta and pulmonary arteries demonstrate normal size and enhancement. No mediastinal or hilar adenopathy. Esophagus is normal in caliber. No hiatal hernia. Chest wall: No rib fractures. No subcutaneous emphysema. No axillary or supraclavicular adenopathy. Thyroid gland is unremarkable. ABDOMEN: Solid organs: Liver is normal in size and enhancement, without lacerations. Gallbladder is unremarkable. Biliary system is non-dilated. Pancreas enhances normally, without transection. Spleen is normal in size and enhancement, without lacerations. No adrenal hematomas. Both kidneys enhance normally, without hydronephrosis or lacerations. Peritoneum and bowel: No free fluid or air. Unenhanced bowel loops demonstrate normal wall thickness and caliber. Nodes and vessels: No retroperitoneal or mesenteric adenopathy. Aorta and inferior vena cava are normal in size and enhancement. Miscellaneous: No ventral hernias. PELVIS: Genitourinary: Bladder wall thickness is normal. Miscellaneous: No inguinal hernias or adenopathy. Bones: Pelvic ring and hip joints appear intact. No vertebral compression fractures. IMPRESSION: No traumatic injury to the chest, abdomen or pelvis. Incidental multiple scattered sub 6 mm pulmonary nodules. If patient is high risk for lung malignancy, recommend follow-up CT in 12 months to demonstrate stability. Dictated by: Dominga Puentes M.D. on 08/24/2023 at 20:56 Approved by: Dominga Puentes M.D. on 08/24/2023 at 21:00
[2023-08-24] MEDS: KETOROLAC 30 MG/ML VIAL 15 MG IV (19:32)
[2023-08-24 19:42] LABS: Add Manual Diff / Slide Review NO; Basophils Absolute Auto 0 /uL (0-100); Basophils Percent Auto 0.4 % (0-2); Eosinophils Absolute Auto 100 /uL (0-450); Eosinophils Percent Auto 1.5 % (2-4); Hematocrit 41.6 % (36-46); Hemoglobin 14.7 g/dL (12.0-16.0); Lymphocytes Absolute Auto 2600 /uL (1100-4500); Lymphocytes Percent Auto 27.3 % (25-40); Mean Corpuscular HGB Conc 35.4 % (30-36); Mean Corpuscular Hemoglobin 32.2 PG (26-34); Mean Corpuscular Volume 90.9 fL (80-100); Monocytes Absolute Auto 600 /uL (0-900); Monocytes Percent Auto 6.6 % (3-14); Neutrophils Absolute Auto 6100 /uL (1500-7000); Neutrophils Percent Auto 64.2 % (50-75); Platelet Count 229 X10^3/uL (150-400); Red Blood Cell Count 4.58 X10^6/uL (4.0-5.2); Red Cell Distribution Width 13.2 % (11.6-14.8); White Blood Cell Count 9.5 X10^3/uL (4.5-11.0)
[2023-08-24 19:51] LABS: Alanine Aminotransferase 30 IU/L (<35); Albumin 4.5 g/dL (3.5-5.0); Albumin Globulin Ratio 1.6 (1.0-2.8); Alkaline Phosphatase 79 U/L (38-126); Aspartate Aminotransferase 25 IU/L (14-36); BUN Creatinine Ratio 25.7 (6-22); Bilirubin Total 0.6 mg/dL (0.2-1.3); Blood Urea Nitrogen 18 mg/dL (7-17); Calcium 10.5 mg/dL (8.4-10.2); Carbon Dioxide 25 mmol/L (22-32); Chloride 105 mmol/L (98-107); Estimated Glomerular Filt Rate > 60 mL/min (>60); Globulin 2.9 g/dL (1.7-4.1); Glucose 88 mg/dL (70-100); HEMOLYSIS 27 (0-50); Lipase 92 U/L (23-300); Potassium 3.6 mmol/L (3.4-5.1); Sodium 139 mmol/L (137-145); Total Protein 7.4 g/dL (6.3-8.2)
[2023-08-24] MEDS: OXYCODONE/APAP 5/325 PREPACK 1 BOTTLE MISC (21:41)
== END 2023-08-24 21:55 | disposition home or self-care (01) ==
PROVIDERS: Emergency Provider Emergency Medicine; PCP Nurse Practitioner
DX: S20.212A Contusion of left front wall of thorax, initial encounter (principal); S70.02XA Contusion of left hip, initial encounter; W10.8XXA Fall (on) (from) other stairs and steps, initial encounter; R91.1 Solitary pulmonary nodule
CPT/HCPCS: 36415; 71100; 71101; 71260; 73502; 74177; 80053; 83690; 85025; 96374; 99284; J1885; Q9967

== ENCOUNTER → 2023-12-28 10:12 | Outpatient (CLI) | payer OTHER, SELFPAY ==
--- NOTE | 2023-12-28 10:15 | DI.RAD.S_ITS ---
PROCEDURE: XR RIBS LT MIN 3V W CXR1V INDICATIONS: Left rib pain TECHNIQUE: 3 views of the ribs were acquired, along with a single view chest. COMPARISON: None. FINDINGS: Surgical changes and devices: None. Bones and chest wall: No fractures or dislocations. No suspicious bony lesions. Overlying soft tissues appear unremarkable. Lungs and pleura: No pleural effusions or pneumothorax. Lungs appear clear. Mediastinum: Mediastinal contours appear normal. Heart size is normal. IMPRESSION: No visualized acute fracture or dislocation. However, if clinical concern and/or pain persist, short interval imaging followup in 7-10 days is recommended, as occult injury cannot be definitively excluded. Dictated by: Rhoda Marcus M.D. on 12/28/2023 at 17:02 Approved by: Rhoda Marcus M.D. on 12/28/2023 at 17:02
[2023-12-28 11:17] LABS: Alanine Aminotransferase 52 IU/L (<35); Albumin 5.2 g/dL (3.5-5.0); Albumin Globulin Ratio 1.9 (1.0-2.8); Alkaline Phosphatase 73 U/L (38-126); Aspartate Aminotransferase 37 IU/L (14-36); BUN Creatinine Ratio 28.6 (6-22); Bilirubin Total 0.5 mg/dL (0.2-1.3); Blood Urea Nitrogen 14 mg/dL (7-17); Calcium 11.4 mg/dL (8.4-10.2); Carbon Dioxide 29 mmol/L (22-32); Chloride 105 mmol/L (98-107); Cholesterol 180 mg/dL (140-199); Estimated Glomerular Filt Rate > 60 mL/min (>60); Globulin 2.7 g/dL (1.7-4.1); Glucose 98 mg/dL (70-100); HDL Cholesterol 61 mg/dL (40-60); HEMOLYSIS 16 (0-50); LDL Cholesterol Calculated 96 mg/dL (<100); Potassium 3.9 mmol/L (3.4-5.1); Sodium 142 mmol/L (137-145); Total Protein 7.9 g/dL (6.3-8.2); Triglycerides 117 mg/dL (35-150)
[2023-12-28 12:12] LABS: Thyroid Stimulating Hormone 11.5 uIU/mL (0.47-4.68)
[2023-12-28 15:40] LABS: Creatinine Urine Random 71.2 mg/dL
[2023-12-28 15:42] LABS: Microalbumi Creatinin Ratio Ur 23.8 ug/mg CR (<30); Microalbumin Urine Random 1.7 mg/dL (0-1.6)
[2023-12-28 16:37] LABS: HIV 1 & 2 Ab/Ag 4th Gen Combo NEGATIVE (NEGATIVE); Hep C Virus Ab w/Reflex Quant NEGATIVE s/c (NEGATIVE)
[2023-12-29 18:07] LABS: Ionized Calcium 5.7 mg/dL (4.5-5.6)
== END ==
LOC: RAD 10:14
PROVIDERS: PCP Nurse Practitioner; Referring Provider Nurse Practitioner Family; Visit Provider Nurse Practitioner Family
DX: R07.81 Pleurodynia (principal); E83.52 Hypercalcemia; T50.905A Adverse effect of unspecified drugs, medicaments and biological substances, initial encounter; K76.9 Liver disease, unspecified; E78.5 Hyperlipidemia, unspecified; E03.9 Hypothyroidism, unspecified; I10 Essential (primary) hypertension; Z79.899 Other long term (current) drug therapy; Z11.59 Encounter for screening for other viral diseases; Z11.4 Encounter for screening for human immunodeficiency virus [HIV]
CPT/HCPCS: 36415; 71101; 80053; 80061; 82043; 82330; 82570; 84443; 86803; 87389

== ENCOUNTER → 2024-01-01 11:31 | Outpatient (CLI) | payer OTHER, SELFPAY ==
[2024-01-01 12:42] LABS: Appearance Urine UA CLEAR; Bilirubin Urine UA NEGATIVE (NEGATIVE); Color Urine UA YELLOW; Glucose Urine UA NEGATIVE (Negative); Ketones Urine UA 1+ (NEGATIVE); Leukocyte Esterase Urine UA NEGATIVE (NEGATIVE); Nitrite Urine UA NEGATIVE (Negative); Occult Blood Urine UA NEGATIVE (Negative); Protein Urine UA NEGATIVE (Negative); Specific Gravity Urine UA 1.025 (1.000-1.035)
[2024-01-01 12:50] LABS: Bacteria Urine None Seen; RBC Urine None Seen (0-5/HPF); Squamous Epithelial Cell Urine 0-1 /HPF (0-5/HPF); Urine Volume 10mL (spun); WBC Urine 0-1/HPF (0-5/HPF)
[2024-01-01 12:51] LABS: Culture Indicated Urine Cult Not Indicated
== END ==
PROVIDERS: PCP Nurse Practitioner; Referring Provider Nurse Practitioner; Visit Provider Nurse Practitioner
DX: R30.0 Dysuria (principal); R79.89 Other specified abnormal findings of blood chemistry; E83.52 Hypercalcemia; T50.905A Adverse effect of unspecified drugs, medicaments and biological substances, initial encounter
CPT/HCPCS: 36415; 81001; 82310; 83970; 93005

== ENCOUNTER → 2024-02-02 07:58 | Outpatient (CLI) | payer OTHER, SELFPAY ==
--- NOTE | 2024-02-02 07:59 | DI.ECHO.S_ITS ---
[facility] : : [address] : : [place] : : [id number] : : Phone: [phone] Echocardiogram Report + + :Name: SAM NEWMAN Study Date: 02/02/2024 Height: 61 in : :[facility] ReadingLocation: Weight: 180 lb : : Gender: Female BSA: 1.8 m2 : :: 1965 Age: 59 yrs BP: 149/78 mmHg: :Reason For Study: ESSENTIAL HYPERTENSION : :Ordering Physician: MOR, : :CABRERA Performed By: Iban Vera : :Referring: CABRERA JUARES : + + Interpretation Summary 1) Normal left ventricular thickness, size, wall motion, and systolic function (EF 60-65%). 2) Normal right ventricular size and function. 3) No significant valvular abnormalities. 4) No prior Echo available for comparison. Procedure: A two-dimensional transthoracic echocardiogram with color flow and Doppler was performed. The study quality was technically adequate. There is no prior echocardiogram noted for this patient. The patient was in sinus rhythm with heart rates between 65-72 bpm during the exam. Left Ventricle: The left ventricle is normal in size and wall thickness. The ejection fraction is estimated to be 60-65%. Left ventricular systolic function appears normal without focal wall motion abnormalities. Diastolic function could not be accurately assessed due to contradictory data. Right Ventricle: The right ventricle is normal size. The right ventricular systolic function is normal. Atria: The left atrial size is normal. Right atrial size is normal. The interatrial septum grossly appears intact with no obvious evidence for an atrial septal defect. Mitral Valve: The mitral valve is normal. There is no mitral valve stenosis. There is trace mitral regurgitation. Aortic Valve: The aortic valve is trileaflet. There is mild aortic valve sclerosis. There is no aortic valve stenosis. No aortic regurgitation is present. Tricuspid Valve: The tricuspid valve is normal. There is no tricuspid stenosis. There is trace tricuspid regurgitation. The right ventricular systolic pressure is estimated to be at least 22.1 mmHg based on an estimated right atrial pressure of 3 mm Hg. Pulmonic Valve: The pulmonic valve is not well visualized. There is no pulmonic valvular stenosis. There is no pulmonic valvular regurgitation. Great Vessels: The aortic root is normal size. The dimensions of the ascending aorta are normal. The IVC is of normal diameter and collapses greater than 50% with a sniff. This suggests a low right atrial pressure of 3 mm Hg. Pericardium/ Pleura There is no pericardial effusion. There is no pleural effusion. MMode/2D Measurements & Calculations LVIDd: 4.8 cm LVOT diam: 2.1 cm LVIDs: 3.2 cm Ao root diam: 3.3 cm FS: 34.0 % asc Aorta Diam: 3.6 cm IVSd: 0.99 cm Ao Arch Diam (Prox Trans): 2.6 cm LVPWd: 0.94 cm LV mccauley. diameter/BSA (cm/m^2): 2.7 LV sys. diameter/BSA (cm/m^2): 1.8 LA A2 area: 18.7 cm2 RA long axis: 4.4 cm LA A4 area: 18.8 cm2 RA area: 16.0 cm2 LA length (vol): 5.4 cm RA vol: 49.7 ml LA vol: 55.1 ml RA : 27.5 ml/m2 LA vol index: 30.5 ml/m2 IVC diam: 1.9 cm RVD1 (basal): 3.7 cm RVD2 (mid): 3.4 cm TAPSE: 2.3 cm Doppler Measurements & Calculations Ao V2 max: 174.4 cm/sec LVOT Max Nikolay: 107.9 cm/sec Ao V2 mean: 127.7 cm/sec LV V1 max P.7 mmHg Ao max P.2 mmHg LV V1 VTI: 29.1 cm Ao mean P.0 mmHg RAUL(I,D): 2.5 cm2 Ao V2 VTI: 39.4 cm RAUL(V,D): 2.1 cm2 sev ratio: 0.74 RAUL indexed to BSA (cm^2/m^2): 1.4 MV E max nikolay: 111.3 cm/sec TR max nikolay: 219.8 cm/sec MV A max nikolay: 102.2 cm/sec TR max P.3 mmHg MV E/A: 1.1 PA V2 max: 103.8 cm/sec Med Peak E' Nikolay: 7.9 cm/sec PA V2 mean: 71.4 cm/sec E/E' med: 14.1 PA mean P.3 mmHg Lat Peak E' Nikolay: 7.2 cm/sec PA pr(Accel): 19.1 mmHg E/E' lat: 15.5 E/e' average: 14.8 MV dec time: 0.25 sec SV(LVOT): 100.3 ml Reading Physician:10:09 AM
== END ==
PROVIDERS: PCP Nurse Practitioner; Referring Provider Nurse Practitioner; Visit Provider Nurse Practitioner
DX: I35.8 Other nonrheumatic aortic valve disorders (principal); I10 Essential (primary) hypertension
CPT/HCPCS: 93306

== ENCOUNTER → 2024-02-15 16:19 | Outpatient (CLI) | payer OTHER, SELFPAY ==
--- NOTE | 2024-02-15 16:20 | DI.US.S_ITS ---
PROCEDURE: US ABDOMEN LIMITED INDICATIONS: elevated LFTs TECHNIQUE: Real-time scanning was performed of the abdominal and retroperitoneal organs, with image documentation. COMPARISON: [facility], CT, CT CHEST ABD PEL W CON, 08/24/2023, 19:09. [facility], US, US ABDOMEN COMPLETE, 07/19/2019, 9:55. FINDINGS: Liver: Measures 15.3 cm. Increased in echogenicity. Hyperechoic focus in the right lobe of the liver adjacent to the gallbladder measuring 1.3 cm. This is may be present on the prior CT from 2022. Portal vein diameter measures 1.4 cm. Main portal vein demonstrates hepatopetal flow. Peak systolic velocity 31 cm/sec. Gallbladder: Nondilated. No stones or sludge. Normal gallbladder wall thickness. No pericholecystic fluid. Negative sonographic Mackenzie's sign. Biliary ducts: Intrahepatic bile ducts are non-dilated. Extrahepatic bile duct caliber measures 4 mm. Normal is 6-7 mm or less in diameter, or 10 mm or less post-cholecystectomy. Pancreas: Visualized portions of the pancreas are sonographically normal. Tail is not well seen due to overlying bowel gas. Right kidney: Measures 11.5 cm. Cortex 1 cm. Small benign appearing cyst at the inferior pole the right kidney measuring 1 cm. Miscellaneous: No free abdominal fluid. IMPRESSION: 1. No acute cholecystitis. No gallstones. 2. Increased hepatic echogenicity most consistent with hepatic steatosis. Other forms of hepatocellular disease could have similar appearance. 3. Echogenic focus adjacent to the gallbladder veins are Kriss 1.3 cm. This could represent a area of focal fatty infiltration or a small hemangioma. If clinically indicated this could be further characterized with liver MRI. Dictated by: Efrain Chin M.D. on 02/15/2024 at 18:11 Approved by: Efrain Chin M.D. on 02/15/2024 at 18:18
== END ==
PROVIDERS: PCP Nurse Practitioner; Referring Provider Nurse Practitioner; Visit Provider Nurse Practitioner
DX: N28.1 Cyst of kidney, acquired (principal); R79.89 Other specified abnormal findings of blood chemistry
CPT/HCPCS: 76705

== ENCOUNTER → 2024-03-01 18:31 | Outpatient (CLI) | payer OTHER, SELFPAY ==
--- NOTE | 2024-03-01 19:36 | DI.MRI.S_ITS ---
PROCEDURE: MR ABDOMEN LIVER PROTOCOL INDICATIONS: Abnormal US TECHNIQUE: Coronal HASTE, axial 2D FLASH in- and [id number]; axial breath-hold T2 FSE. Dynamic axial VIBE during the administration of contrast; post-contrast coronal VIBE or 2D FLASH with fat saturation from the hepatic dome to the iliac crests. Optional diffusion weighted imaging and ADC may be performed. COMPARISON: None. FINDINGS: Image quality: Diagnostic. Lung bases: Unremarkable. Liver: No solid mass. Focal geographic fat deposition along the gallbladder fossa, corresponding to hyperechoic region on comparison ultrasound (series 4, image 21). Gallbladder: No gallstones or wall thickening. Biliary ducts: No biliary dilation. Pancreas: No ductal dilation. Spleen: Size is within normal limits. Adrenal Glands: No adrenal nodules. Kidneys and Ureters: No hydronephrosis. No solid mass. No complex renal cystic lesion which requires follow up. Stomach and Bowel: Normal colonic caliber, without significant wall thickening. Colonic diverticulosis without evidence of diverticulitis. Peritoneum: No abnormal intraperitoneal fluid. No free air. Ventral Wall: No hernia. Abdominal Nodes: No retroperitoneal or mesenteric adenopathy by size criteria. Vessels: Aorta and inferior vena cava are normal in size. Bones: No aggressive osseous abnormality. IMPRESSION: Focal geographic fat deposition along the gallbladder fossa, corresponding to hyperechoic region on comparison ultrasound (series 4, image 21). Dictated by: Aamir Murphy M.D. on 03/02/2024 at 9:54 Approved by: Aamir Murphy M.D. on 03/02/2024 at 9:58
== END ==
LOC: MRI 18:32
PROVIDERS: PCP Nurse Practitioner; Referring Provider Nurse Practitioner; Visit Provider Nurse Practitioner
DX: R93.5 Abnormal findings on diagnostic imaging of other abdominal regions, including retroperitoneum (principal); K57.90 Diverticulosis of intestine, part unspecified, without perforation or abscess without bleeding
CPT/HCPCS: 74183; A9579

== ENCOUNTER 2024-05-07 15:15 | Emergency (ER) | payer OTHER, SELFPAY ==
[2024-05-07] VITALS (8 sets, daily range): BP systolic 135–142; BP diastolic 62–69; PULSE 68–78; RESP 14; TEMP 36.8; O2SAT 94–95; BMI 33.8
--- NOTE | 2024-05-07 15:31 | DI.RAD.S_ITS ---
PROCEDURE: XR HIP W PEL IF DONE RT 2V INDICATIONS: right hip pain TECHNIQUE: AP pelvis with lateral view(s) of the right hip(s). COMPARISON: [facility], CR, XR HIP W PEL IF DONE LT 2V, 08/24/2023, 18:27. FINDINGS: Bones: No fractures or dislocations. Pelvic ring appears intact. No suspicious bony lesions. Mild bilateral hip joint degeneration and moderate degenerative change of the pubis symphysis. Soft tissues: The visualized bowel gas pattern is normal. No suspicious soft tissue calcifications. IMPRESSION: No acute bony abnormality. If symptoms persist with conservative management, consider cross-sectional imaging such as CT or MRI. Approved by: Dominga Puentes M.D.,Ph.D. on 05/07/2024 at 17:10
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
--- NOTE | 2024-05-07 16:14 | DI.CT.S_ITS ---
PROCEDURE: CT LUMBAR SPINE WO CON INDICATIONS: lumbar pain TECHNIQUE: Noncontrast 3 mm thick sections acquired from the T12 level to the sacrum. Sagittal and coronal reformats were constructed. For radiation dose reduction, the following was used: automated exposure control. COMPARISON: None. FINDINGS: Image quality: Diagnostic Bones: There is normal bony alignment. No acute vertebral body compression fractures. No suspicious lytic or blastic bony lesions. No pars defects. Mild multilevel degenerative changes. Soft tissues: No retroperitoneal masses or hematomas. Visualized aorta is normal in caliber. Colonic diverticulosis without acute inflammation. IMPRESSION: No acute fracture or traumatic subluxation. Mild multilevel degenerative changes. Approved by: Dominga Puentes M.D.,Ph.D. on 05/07/2024 at 17:31
[2024-05-07] MEDS: KETOROLAC 30 MG/ML VIAL 15 MG IM (16:28)
[2024-05-07] MEDS: DEXAMETHASONE 10 MG/ML VIAL PO (16:29)
== END 2024-05-07 18:38 | disposition home or self-care (01) ==
PROVIDERS: Emergency Provider Student in an Organized Health Care Education/Training Program; PCP Nurse Practitioner
DX: M19.90 Unspecified osteoarthritis, unspecified site (principal); M54.50 Low back pain, unspecified; Z79.899 Other long term (current) drug therapy
CPT/HCPCS: 72131; 73502; 96372; 99284; J1100; J1885

== ENCOUNTER → 2024-08-06 09:36 | Outpatient (CLI) | payer OTHER, SELFPAY ==
--- NOTE | 2024-08-06 09:37 | DI.CT.S_ITS ---
PROCEDURE: CT LUNG LOW DOSE SCREENING INDICATIONS: Nicotine dependence, cigarettes, uncomplicated TECHNIQUE: Noncontrast 2.0-2.5 mm thick sections acquired from the pulmonary apices to the posterior costophrenic angles. 7 mm thick axial MIP, and 5 mm coronal and sagittal reformats were then acquired. For radiation dose reduction, the following was used: automated exposure control, adjustment of mA and/or kV according to patient size. COMPARISON: [facility], CT, CT CHEST ABD PEL W CON, 08/24/2023, 19:09. FINDINGS: Image quality: Diagnostic. Lower Neck: No enlarged lymph nodes. Thyroid: No thyroid nodules which require sonographic follow up, per consensus guidelines. Axillae: No enlarged lymph nodes. Chest Wall: Unremarkable. Bones: Visualized osseous structures appear intact without acute fracture or focal destructive lesion. No acute compression fractures of the imaged spine. Lungs and Pleura: No pneumothorax or pleural effusions. No acute consolidations. Redemonstration of multiple scattered sub 6 mm pulmonary nodules. No new suspicious or enlarging pulmonary nodules identified. No septal thickening or nodularity. Heart: Heart size is normal. No pericardial effusion. Multivessel atherosclerotic calcifications of the coronary arteries. Thoracic Vessels: The aorta and pulmonary arteries demonstrate normal size. Mediastinum and Simran: No enlarged lymph nodes. Esophagus: No wall thickening. No hiatal hernia. Upper Abdomen: Visualized upper abdomen solid organs and bowel loops appear normal. IMPRESSION: Stable appearance of multiple bilateral sub 6 mm pulmonary nodules. No new suspicious or enlarging nodules identified. LUNG-RADS 2; continued annual screening, if eligible. Clinically Significant Non-pulmonary Findings: Moderate atherosclerotic vascular calcifications. Dictated by: Gideon Tran M.D. on 08/06/2024 at 15:43 Approved by: Gideon Tran M.D. on 08/06/2024 at 16:09
[2024-08-06 10:00] LABS: BUN Creatinine Ratio 29.2 (6-22); Blood Urea Nitrogen 14 mg/dL (7-17); Calcium 9.7 mg/dL (8.4-10.2); Carbon Dioxide 27 mmol/L (22-32); Chloride 109 mmol/L (98-107); Estimated Glomerular Filt Rate > 60 mL/min (>60); Glucose 107 mg/dL (70-100); HEMOLYSIS < 15 (0-50); Potassium 4.2 mmol/L (3.4-5.1); Sodium 141 mmol/L (137-145)
[2024-08-06 10:43] LABS: Thyroid Stimulating Hormone 0.732 uIU/mL (0.47-4.68)
[2024-08-07 07:39] LABS: Calcium 9.8 mg/dL (8.7-10.2); Parathyroid Hormone, Intact 54 pg/mL (15-65)
== END ==
PROVIDERS: PCP Nurse Practitioner; Referring Provider Nurse Practitioner; Visit Provider Family Medicine
DX: Z12.2 Encounter for screening for malignant neoplasm of respiratory organs (principal); F17.210 Nicotine dependence, cigarettes, uncomplicated; Z01.812 Encounter for preprocedural laboratory examination; R91.8 Other nonspecific abnormal finding of lung field; I25.10 Atherosclerotic heart disease of native coronary artery without angina pectoris; E03.9 Hypothyroidism, unspecified; E83.52 Hypercalcemia; T50.905A Adverse effect of unspecified drugs, medicaments and biological substances, initial encounter
CPT/HCPCS: 36415; 71271; 80048; 82310; 83970; 84443

== ENCOUNTER 2025-02-03 08:56 | Emergency (ER) | payer OTHER, SELFPAY ==
[2025-02-03] VITALS (9 sets, daily range): BP systolic 150–202; BP diastolic 65–89; PULSE 65–77; RESP 16–22; TEMP 36.5–36.8; O2SAT 94–97; BMI 40.7
--- NOTE | 2025-02-03 09:23 | PC.NURSE ---
Pt states had blurred vision 01/31/25 that resolved that day, pt denies taking anything for it, denies symptoms at this time. A&Ox4, GCS 15, breathing even/equal/unlabored at this time. Call light within reach
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
== END 2025-02-03 10:14 | disposition home or self-care (01) ==
PROVIDERS: Emergency Provider Student in an Organized Health Care Education/Training Program; PCP Family Medicine
DX: H53.8 Other visual disturbances (principal); R20.2 Paresthesia of skin
CPT/HCPCS: 82962; 99282

== ENCOUNTER → 2025-02-22 15:15 | Outpatient (CLI) | payer OTHER, SELFPAY ==
--- NOTE | 2025-02-22 15:43 | DI.MRI.S_ITS ---
PROCEDURE: MR STROKE Pre- and post-contrast brain MRI, non-contrast brain MR angiogram, pre- and postcontrast neck MR angiogram INDICATIONS: TIA TECHNIQUE: Brain: Noncontrast axial T1 spin echo, axial T2 fast spin echo, sagittal and axial FLAIR, coronal T2 fast spin echo, axial gradient echo, axial diffusion and ADC through the brain. After the administration of contrast, axial 3D VIBE of the cranial vasculature and brain. Brain MRA: Non-contrast 3-D time of flight MR angiogram, with multiple eodmslm-dpqnjzdtl-eveucoueyz (MIP) reformats performed. Neck MRA: Axial and sagittal TruFISP through the neck. Coronal dynamic MR angiogram during administration of contrast in the arterial and venous phases, with 3- dimenstional yyteeks-xdbqfgaau-wxieopgowp (MIP) reformats constructed from subtraction images. COMPARISON: None. FINDINGS: Image quality: Excellent. BRAIN: CSF spaces: Ventricles are normal in size and shape. Basal cisterns are patent. No extra-axial fluid collections. Brain: No intracranial bleeds or mass effects. Minimal chronic microvascular ischemic changes are present. Arzate-white matter interface is normal. Diffusion weighted images show no acute infarct. Brainstem appears normal. Normal intravascular flow voids are present. No abnormal intracranial enhancement. Skull and face: Calvarial marrow signal is normal. Orbits appear normal. Sinuses: Sinuses and mastoids are clear. BRAIN MR ANGIOGRAM: Anterior circulation: Intracranial internal carotid arteries are normal in size and enhancement. The flow within the paired anterior cerebral arteries is normal and symmetric. The flow within the middle cerebral arteries is normal and symmetric. The anterior communicating artery is seen. No stenoses, occlusions, or aneurysms. Posterior circulation: The visualized portions of the vertebral arteries demonstrate normal caliber, and join to form a normal appearing basilar artery. The flow within the posterior cerebral arteries is normal and symmetric. No stenoses, occlusions, or aneurysms. NECK MR ANGIOGRAM: Carotids: Great vessels demonstrate a conventional anatomy as they arise from the aortic arch. The origins of the common carotid arteries appear patent. The calibers and courses of both common carotid arteries are normal. The bifurcation regions appear normal bilaterally. The internal carotid arteries demonstrate normal course and caliber. Posterior circulation: The origins of the vertebral arteries appear patent. More superior portions of both vertebral arteries demonstrate normal course and caliber, and join to form a normal appearing basilar artery. Miscellaneous: Subclavian arteries appear patent. Pre-contrast images through the neck show no soft tissue abnormalities. IMPRESSION: BRAIN MRI: No acute or subacute infarct. No acute intracranial abnormalities or abnormal intracranial enhancement. Minimal chronic microvascular ischemic changes are present. BRAIN MR ANGIOGRAM: No significant arterial abnormalities. NECK MR ANGIOGRAM: No significant arterial abnormalities. Dictated by: Johan Paez M.D. on 02/23/2025 at 8:08 Approved by: Johan Paez M.D. on 02/23/2025 at 8:14
== END ==
LOC: MRI 15:16
PROVIDERS: PCP Family Medicine; Referring Provider Family Medicine; Visit Provider Family Medicine
DX: G45.9 Transient cerebral ischemic attack, unspecified (principal)
CPT/HCPCS: 70544; 70549; 70553; A9579

== ENCOUNTER → 2025-07-24 10:52 | Outpatient (CLI) | payer OTHER, SELFPAY ==
[2025-07-24 12:27] LABS: UR Morphine/Opiate cutoff 300 Negative (Negative); Ur Specific Gravity Normal (Normal); Urine MDMA Negative (Negative); Urine Methamphetamines Negative (Negative); Urine Tetrahydrocannabinol Negative (Negative); Urine Tricyclic Antidepressant Negative (Negative)
[2025-07-24 13:09] LABS: Hemoglobin A1C% w Est Avg Glu 5.5 % (4.0-6.0)
[2025-07-24 14:35] LABS: Alanine Aminotransferase 20 IU/L (<35); Albumin 4.7 g/dL (3.5-5.0); Albumin Globulin Ratio 2.0 (1.0-2.8); Alkaline Phosphatase 72 U/L (38-126); Blood Urea Nitrogen 18 mg/dL (7-17); Calcium 9.9 mg/dL (8.4-10.2); Carbon Dioxide 22 mmol/L (22-32); Chloride 108 mmol/L (98-107); Cholesterol 166 mg/dL (140-199); Estimated Glomerular Filt Rate > 60 mL/min (>60); Globulin 2.3 g/dL (1.7-4.1); Glucose 105 mg/dL (70-99); HDL Cholesterol 47 mg/dL (40-60); HEMOLYSIS < 15 (0-50); Potassium 4.0 mmol/L (3.4-5.1); Sodium 142 mmol/L (137-145); Total Protein 7.0 g/dL (6.3-8.2); Triglycerides 125 mg/dL (35-150)
[2025-07-24 16:17] LABS: TSH w/ Reflex to FT4 3.29 uIU/mL (0.47-4.68)
[2025-07-25 14:27] LABS: Microalbumi Creatinin Ratio Ur 14.0 ug/mg CR (<30)
== END ==
PROVIDERS: PCP Family Medicine; Referring Provider Family Medicine; Visit Provider Family Medicine
DX: E66.9 Obesity, unspecified (principal); E78.5 Hyperlipidemia, unspecified; E03.9 Hypothyroidism, unspecified; I10 Essential (primary) hypertension
CPT/HCPCS: 36415; 80053; 80061; 80305; 82043; 82570; 83036; 84443